=== PATIENT | male | born 1960 | race Caucasian/White ===

== ENCOUNTER 2024-06-05 11:29 | Outpatient (CLI) | payer OTHER, SELFPAY | END 2024-06-05 11:30 | disposition home or self-care (01) | PROVIDERS: PCP Family Medicine; Visit Provider Family Medicine | DX: E78.2 Mixed hyperlipidemia (principal); Z12.5 Encounter for screening for malignant neoplasm of prostate; Z13.0 Encounter for screening for diseases of the blood and blood-forming organs and certain disorders involving the immune mechanism | CPT/HCPCS: 80048; 80061; 85025; G0103 ==

== ENCOUNTER 2024-07-15 18:53 | Outpatient (CLI) | payer OTHER, SELFPAY ==
--- NOTE | 2024-07-29 08:47 | W.PM.SLEEP ---
Sleep Study Details Details Interpreting Provider: Gamal Date of Sleep Study: 07/15/24 Sleep Study Details: STUDY TYPE:? Home unattended ? BMI:? 38.6 ORDERING PROVIDER:? Mac and INDICATION: Concerned about sleep apnea ? SLEEP SUMMARY:? 469 minutes monitored RESPIRATORY SUMMARY: AHI 49.6 Low oxygen 65 96.5% of study oxygen less than 90% Snoring 87.4% PERIODIC LIMB MOVEMENTS OF SLEEP:? Not recorded CARDIAC:? Range 47-104, mean 79.4 beats per minute IMPRESSION:? Severe obstructive sleep apnea with significant hypo oxygenation. There were no central apneas. RECOMMENDATION: Recommend either in-lab CPAP titration or AutoSet CPAP with close follow-up. Once effective therapy is established overnight oximetry should be performed. Weight loss is also recommended.
== END 2024-07-15 18:54 | disposition home or self-care (01) ==
LOC: SLEEP 18:59
PROVIDERS: PCP Family Medicine; Visit Provider Otolaryngology
DX: G47.33 Obstructive sleep apnea (adult) (pediatric) (principal)
CPT/HCPCS: 95806

== ENCOUNTER 2025-05-28 11:20 | Outpatient (CLI) | payer OTHER, SELFPAY | END 2025-05-28 11:21 | disposition home or self-care (01) | PROVIDERS: PCP Family Medicine; Visit Provider Family Medicine | DX: E78.2 Mixed hyperlipidemia (principal); Z13.9 Encounter for screening, unspecified | CPT/HCPCS: 80048; 80061; G0103 ==